=== PATIENT | male | born 1985 | race Two or more races ===

== ENCOUNTER 2023-03-26 08:52 | Emergency (ER) | payer MEDICAID ==
[~2023-03-26] VITALS: Ht 152.4 cm; Wt 73.2 kg
[2023-03-26 09:40] VITALS: BP 177/99; PULSE 91; RESP 16; TEMP 98.9; O2SAT 98
[2023-03-26] MEDS ORDERED: IBUP-1456 PO (09:42)
== END 2023-03-26 09:47 | disposition home or self-care (01) ==
LOC: ER 08:52
DX: M75.31 Calcific tendinitis of right shoulder (principal); M24.811 Other specific joint derangements of right shoulder, not elsewhere classified; Z79.1 Long term (current) use of non-steroidal anti-inflammatories (NSAID)
CPT/HCPCS: 73030

== ENCOUNTER 2025-03-09 18:07 | Inpatient (IN) | payer MEDICAID ==
[~2025-03-09] VITALS: Ht 167.6 cm; Wt 77.0 kg
[~2025-03-09 18:07] MED LIST: IBUP-1456 PO
--- NOTE | 2025-03-09 18:26 | ECG ---
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
[2025-03-09 18:30] VITALS: PULSE 76; RESP 18; O2SAT 98
[2025-03-09 18:40] LABS: Hematocrit 43.4 % (41.0-53.0); Hemoglobin 15.5 g/dL (13.5-17.5); Mean Corpuscular Hemoglobin 32.5 pg (28.0-32.0); Mean Corpuscular Volume 91.2 fL (80.0-100.0); Nucleated Red Blood Cells % 0.0 %
--- NOTE | 2025-03-09 18:53 | DVH ---
CHEST RADIOGRAPH Indication: cp Technique: Single frontal view of the chest was obtained Comparison: None FINDINGS: Lines and Tubes: None Lungs: No focal consolidation. Pleura: No effusion. No pneumothorax. Cardiomediastinal contours: Unremarkable Bones: No acute osseous abnormality. IMPRESSION: 1. No acute cardiopulmonary disease.
[2025-03-09 18:54] LABS: INR 1.01 (0.9-1.15); Partial Thromboplastin Time 31.0 SEC (24.5-34.5); Prothrombin Time 10.7 sec (9.3-11.8)
[2025-03-09] MEDS: NITROGLYCERIN 0.4 MG SL TAB SL ONE ×2 (18:54→21:07)
--- NOTE | 2025-03-09 19:10 | ECG ---
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
[2025-03-09 19:12] LABS: Chloride 105 mmol/L (98-107); Sodium 142 mmol/L (136-145)
[2025-03-09 19:13] LABS: Anion Gap 12 (5-15); Calcium 9.1 mg/dL (8.7-10.4); Carbon Dioxide 25 mmol/L (20-31)
[2025-03-09 19:18] LABS: BUN/Creatinine Ratio 11.2 (10.0-20.0); Blood Urea Nitrogen 10 mg/dL (9-23); Glucose 90 mg/dL (74-106)
[2025-03-09 19:19] VITALS: PULSE 89; RESP 18; O2SAT 97
[2025-03-09 19:29] LABS: Potassium 3.4 mmol/L (3.5-5.1)
--- NOTE | 2025-03-09 19:49 | ECG ---
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
--- NOTE | 2025-03-09 19:49 | ED.PDOC ---
HPI Comments 39-year-old male who presents to the ED with c/c of chest pain. Patient states chest pain started 3 days ago and states it is left side of chest. Patient states the pain was initially intermittent but states earlier today it became constant and patient came to the ED for evaluation patient in the ED otherwise states the pain is in the central and left-sided chest and he rates the pain a 8/10 exacerbated with exertion and relieved with rest. Patient denies any associated symptoms including diaphoresis palpitation or shortness of breath associated symptoms. Patient denies any past cardiac history. Patient otherwise denies any other symptoms at this time. Patient was hypertensive at arrival. Chief Complaint: Chest Pain Time Seen by MD: 19:47 Primary Care Provider: unknown Reviewed Notes: Nurses Notes, Medications, Allergies Allergies: Coded Allergies: NO KNOWN ALLERGIES (Unverified , 03/26/23) Home Meds Active Scripts Ibuprofen (Ibuprofen) 800 Mg Tab, 1 TAB PO TID, #30 TAB Prov:DEIRDRE DACOSTASIVAN LEONARD 03/26/23 Information Source: Patient Mode of Arrival: Ambulatory Severity: Moderate Timing: Days Duration: Since onset Prehospital treatment: None Location: Chest (L), Substernal Quality: Sharp, Squeezing, Crushing Onset: At Rest Cardiac Risk Factors: None PE Risk Factors: None History of: None Past Medical History PAST MEDICAL HISTORY: Denies Surgical History: Denies all surgeries Family History Family History: Reviewed,noncontributory to illness Social History Smoker: Non-Smoker Alcohol: Denies ETOH Use Drugs: Denies Drug Use Lives In: Home Constitutional: denies: chills, diaphoresis, fatigue, fever, malaise, sweats, w eakness, others EENTM: denies: blurred vision, double vision, ear bleeding, ear discharge, ear drainage, ear pain, ear ringing, eye pain, eye redness, hearing loss, mouth pain, mouth swelling, nasal discharge, nose bleeding, nose congestion, nose pain, photophobia, tearing, throat pain, throat swelling, voice changes, others Respiratory: denies: cough, hemoptysis, orthopnea, SOB at rest, shortness of breath, SOB with excertion, stridor, wheezing, others Cardiovascular: reports: chest pain; denies: dizzy spells, diaphoresis, Dyspnea on exertion, edema, irregular heart beat, left arm pain, lightheadedness, palpitations, PND, syncope, others Gastrointestinal: denies: abdomen distended, abdominal pain, blood streaked bowels, constipated, diarrhea, dysphagia, difficulty swallowing, hematemesis, melena, nausea, poor appetite, poor fluid intake, rectal bleeding, rectal pain, vomiting, others Genitourinary: denies: burning, dysuria, flank pain, frequency, hematuria, incontinence, penile discharge, penile sore, pain, testicle pain, testicle swelling, urgency, others Neurological: denies: dizziness, fainting, headache, left sided numbness, left sided weakness, numbness, paresthesia, pre-existing deficit, right sided numbness, right sided weakness, seizure, speech problems, tingling, tremors, weakness, others Musculoskeletal: denies: back pain, gout, joint pain, joint swelling, muscle pain, muscle stiffness, neck pain, others Integumetry: denies: bruises, change in color, change in hair/nails, dryness, laceration, lesions, lumps, rash, wounds, others Allergic/Immunocompromised: denies: Difficulty Healing, Frequent Infections, Hives, Itching, others Hematologic/Lymphatic: denies: anemia, blood clots, easy bleeding, easy bruising, swollen glands, others Endocrine: denies: excessive hunger, excessive sweating, excessive thirst, excessive urination, flushing, intolerance to cold, intolerance to heat, unexplained weight gain, unexplained weight loss, others Psychiatric: denies: anxiety, bipolar disorder, depression, hopeless, panic disorder, schizophrenia, sleepless, suicidal, others All Other Systems: Reviewed and Negative Physical Exam General Appearance: Moderate Distress (Qhax-cw-tglnnbhl distress due to chest pain concerns.), Normal HEENT: Normal ENT Inspection, Pharynx Normal, TMs Normal Neck: Full Range of Motion, Non-Tender, Normal, Normal Inspection Respiratory: Chest Non-Tender, Lungs Clear, No Accessory Muscle Use, No Respiratory Distress, Normal Breath Sounds, Other (Unremarkable auscultation nir ateral lung chou.) Cardiovascular: No Edema, No JVD, No Murmur, No Gallop, Normal Peripheral Pulses, Regular Rate/Rhythm, Other (Unremarkable cardiac evaluation) Breast Exam: Deferred Gastrointestinal: No Organomegaly, Non Tender, No Pulsatile Mass, Normal Bowel Sounds, Soft Genitalia: Deferred Pelvic: Deferred Rectal: Deferred Extremities: No calf tenderness, Normal capillary refill, No pedal edema Neurologic: Alert Cerebellar Function: NOT DONE Reflexes: NOT DONE Skin: Dry, Normal Color, Warm Lymphatic: No Adenopathy Was a procedure done? Was a procedure done?: No CP Differential Dx Differential Diagnosis: A-fib, A-Flutter, Angina, Anxiety / Panic Attack, AV Block 1st Degree, VT, PVC's Differential Diagnosis: HTN Essential, HTN Accelerated Differential Diagnosis: Angina, Chest Wall Pain X-Ray, Labs, Meds, VS Vital Signs Date Time Temp Pulse Resp B/P (MAP) Pulse Ox O2 Delivery O2 Flow Rate FiO2 03/09/25 21:19 68 152/86 (108) 03/09/25 21:07 140/66 03/09/25 20:57 98.1 68 18 140/88 (105) 99 98.1 03/09/25 19:51 90/64 03/09/25 19:19 89 18 97 Room Air* 0 03/09/25 19:19 98.1 95 18 141/89 (106) 98 98.1 03/09/25 18:54 164/101 03/09/25 18:30 98.4 76 18 150/105 (120) 98 98.4 03/09/25 18:30 76 18 98 Room Air* 0 03/09/25 18:17 70 03/09/25 18:10 98.7 74 18 183/100 97 98.7 Lab Test 03/09/25 21:15 03/09/25 19:18 03/09/25 18:30 Range/Units Troponin I High Sensitivity Pending 36 33 </=54 ng/L White Blood Count 4.8 4.4-10.8 10^3/uL Red Blood Count 4.76 4.5-5.90 10^6/uL Hemoglobin 15.5 13.5-17.5 g/dL Hematocrit 43.4 41.0-53.0 % Mean Corpuscular Volume 91.2 80.0-100.0 fL Mean Corpuscular Hemoglobin 32.5 H 28.0-32.0 pg Mean Corpuscular Hemoglobin Concent 35.7 32.0-36.0 g/dL Red Cell Distribution Width 13.1 11.8-14.3 % Platelet Count 367 140-450 10^3/uL Mean Platelet Volume 8.2 6.9-10.8 fL Neutrophils (%) (Auto) 52.8 37.0-80.0 % Lymphocytes (%) (Auto) 34.7 10.0-50.0 % Monocytes (%) (Auto) 9.4 0.0-12.0 % Eosinophils (%) (Auto) 2.1 0.0-7.0 % Basophils (%) (Auto) 1.0 0.0-2.0 % Neutrophils # (Auto) 2.5 1.6-8.6 10 ^3/uL Lymphocytes # (Auto) 1.7 0.4-5.4 10 ^3/uL Monocytes # (Auto) 0.5 0-1.3 10 ^3/uL Eosinophils # (Auto) 0.1 0-0.8 10 ^3/uL Basophils # (Auto) 0 0-0.2 10 ^3/uL Nucleated Red Blood Cells 0.0 % Prothrombin Time 10.7 9.3-11.8 sec Prothrombin Time INR 1.01 0.9-1.15 Activated Partial Thromboplast Time 31.0 24.5-34.5 SEC Sodium Level 142 136-145 mmol/L Potassium Level 3.4 L 3.5-5.1 mmol/L Chloride Level 105 98-107 mmol/L Carbon Dioxide Level 25 20-31 mmol/L Anion Gap 12 5-15 Blood Urea Nitrogen 10 9-23 mg/dL Creatinine 0.89 0.700-1.30 mg/dL Glomerular Filtration Rate Calc 112 >90 mL/min BUN/Creatinine Ratio 11.2 10.0-20.0 Serum Glucose 90 74-106 mg/dL Calcium Level 9.1 8.7-10.4 mg/dL B-Type Natriuretic Peptide 38.89 0-100 pg/mL Current Medications Medications (Trade) Dose Ordered Sig/Nadine Route Start Time Stop Time Status Last Admin Nitroglycerin (Ntrostat Sublingual) 0.4 mg ONCE ONCE 03/09/25 18:45 03/09/25 18:46 DC 03/09/25 18:54 Nitroglycerin (Ntrostat Sublingual) 0.4 mg ONCE ONCE 03/09/25 21:15 03/09/25 21:16 DC 03/09/25 21:[address] - [address] Ph: [phone] DIAGNOSTIC IMAGING Diagnostic Imaging Report : [id number] Signed PATIENT: SHANEL HIDALGO ACCT: [id number] UNIT: [id number] : 1985 LOC: ER ROOM / BED: / AGE / SEX: 39 / M ADM STATUS: REG ER SERVICE 23 ORDERING PHYSICIAN: CARLOS COLON MD PROCEDURE(s): CXR1 - CHEST XRAY 1 VIEW REASON: cp ORDER NUMBER(s): [id number], ACCESSION NUMBER(s): [id number] CHEST RADIOGRAPH Indication: cp Technique: Single frontal view of the chest was obtained Comparison: None FINDINGS: Lines and Tubes: None Lungs: No focal consolidation. Pleura: No effusion. No pneumothorax. Cardiomediastinal contours: Unremarkable Bones: No acute osseous abnormality. IMPRESSION: 1. No acute cardiopulmonary disease. ATED BY: REDDY GANT Jr., DO DICTATED DATE/TIME: 03/09/251849 SIGNED BY: REDDY GANT Jr., SIGNED DATE/TIME: 03/09/251849 CC: X-Ray, Labs, Meds, VS Comment All studies performed the ED were evaluated by me personally. Serum laboratories were unremarkable for a mild hypokalemic state. Patient was given potassium supplementation. EKG unfortunately revealed a sinus rhythm with a rate of 57. Notable was the left bundle-branch block. ND interval 150 and QT interval 438. Troponins were unremarkable for any acute cardiac concern, but the patient will be admitted for cardiac evaluation due to the new onset left bundle-branch block. Time of 1ST Reevaluation: 21:37 Reevaluation 1ST: Improved Consultation: PCP, Cardiology Patient Education/Counseling: Diagnosis, Treatment Family Education/Counseling: Diagnosis, Treatment, No Family Present SEPSIS Sepsis Screen Date sepsis recognized/suspect: Mar 09, 2025 Time Sepsis recognized/suspect: 1923 Recent Procedure: No On Antibiotic Therapy: No Respiratory Rate >20: No Heart Rate >90: No Temp<36 C (96.8 F) or >38.3 C: No SBP <90 or MAP <65 mmHG: No New Acute Mental Status Change: No Is the patient on CPAP, BIPAP,: No Physician Orders Troponin-I Hs (03/09/25 21:24) Chest Xray 1 View (03/09/25 18:24) Potassium Chl Eugenio Kcl (03/09/25 21:45) Vital Signs Date Time Temp Pulse Resp B/P (MAP) Pulse Ox O2 Delivery O2 Flow Rate FiO2 03/09/25 21:19 68 152/86 (108) 03/09/25 21:07 140/66 03/09/25 20:57 98.1 68 18 140/88 (105) 99 98.1 03/09/25 19:51 90/64 03/09/25 19:19 89 18 97 Room Air* 0 21 03/09/25 19:19 98.1 95 18 141/89 (106) 98 98.1 03/09/25 18:54 164/101 03/09/25 18:30 98.4 76 18 150/105 (120) 98 98.4 03/09/25 18:30 76 18 98 Room Air* 0 21 03/09/25 18:17 70 03/09/25 18:10 98.7 74 18 183/100 97 98.7 Laboratory Tests Test 03/09/25 18:30 White Blood Count 4.8 10^3/uL (4.4-10.8) Medications Medications Dose Ordered Sig/Nadine Route Start Time Stop Time Status Last Admin Dose Admin Nitroglycerin 0.4 mg ONCE ONCE SL 03/09/25 18:45 03/09/25 18:46 DC 03/09/25 18:54 Nitroglycerin 0.4 mg ONCE ONCE SL 03/09/25 21:15 03/09/25 21:16 DC 03/09/25 21:07 Departure 1 Departure Time of Disposition: 21:38 Impression: Primary Impression: Acute coronary syndrome Additional Impressions: Left bundle branch block Hypokalemia Disposition: ADMITTED INPATIENT Condition: Stable Discharged With: Self Critical Care Note Critical Care Time?: No Stability Stability form required: No Heart Score Heart Score: Heart Score Response (Comments) Value History Slightly Suspicious 0 EKG Repolarization Disturb 1 Age <45 0 Risk Factors No known risk factors 0 Troponin Normal limit 0 Total 1 I personally scribed for MILKA RO PAC ([email or web address]) on 03/09/25 at 19:49. Electronically submitted by Hawa Del Cid ([email or web address]). MILKA RO PAC Mar 09, 2025 19:49
[2025-03-09] MEDS: POTASSIUM CHL 20MEQ/100ML 100 ML IV SCH (21:45)
--- NOTE | 2025-03-09 21:57 | DVHHP2 ---
History of Present Illness Reason for Visit: Acute coronary syndrome History of Present Illness The patient is a 39-year-old male who denies past medical history presented to [facility] ED with complaint of chest pain. Patient reports chest pain started three days ago, left-sided chest pain, initially intermittent, but became constant, sharp in nature, rating 8/10 numeric scale, getting worse that prompted this visit. Patient was seen and evaluated in the ED, laboratory data shows WBC 4.8, platelets 367, sodium 142, potassium 3.4, BUN 10, creatinine 0.89, glucose 90, calcium 9.1, troponin 333, BNP 38.89, blood pressure 152/86, heart rate 68, temperature 98.1 F, O2 saturation 99% on room air. Chest x-ray show no acute cardiopulmonary disease. Please see medication orders section in the computer. On my assessment, patient denied chest pain at this moment, dizziness, headache, diaphoresis, shortness of breaths, no abdominal pain, diarrhea, nausea, vomiting, no fever, no chills. Patient was admitted for further evaluation and medical management. Past Medical History Denies past medical history Past Surgical History Denies all surgeries Family History Reviewed, noncontributory to the management of this case. Past Social History The patient lives at home, denies smoking, alcohol or illicit drugs abuse. Review of Systems Constitutional: No: Fever, Chills, Sweats, Weakness, Malaise, Other Eyes: No: Pain, Vision change, Conjunctivae inflammation, Eyelid inflammation, Other, Redness ENT: No: Ear pain, Ear discharge, Nose pain, Nose discharge, Nose congestion, Mouth pain, Mouth swelling, Throat pain, Throat swelling, Other Respiratory: No: Cough, Dry, Shortness of breath, SOB with excertion, Wheezing, Hemoptysis, Pleuritic Pain, Sputum, Wheezing, Other Cardiovascular: Chest Pain; No: Palpitations, Orthopnea, Paroxysmal Noc. Dyspnea, Edema, Lt Headedness, Other Gastrointestinal: No: Nausea, Vomiting, Abdominal Pain, Diarrhea, Constipation, Melena, Hematochezia, Other Genitourinary: No Dysuria, No Frequency, No Incontinence, No Hematuria, No Retention, No Other Musculoskeletal: No: other, neck pain, shoulder pain, arm pain, back pain, hand pain, leg pain, foot pain Skin: No: Rash, Lesions, Jaundice, Bruising, Other Neurological: No: Weakness, Numbness, Incoordination, Change in speech, Confusion, Seizures, Other Allergies: Coded Allergies: NO KNOWN ALLERGIES (Unverified , 03/26/23) Medications Current Medications Medications Dose Ordered Sig/Nadine Route Start Time Stop Time Status Last Admin Dose Admin Potassium Chloride 100 ml @ 50 mls/hr Q2H IV 03/09/25 21:45 03/10/25 01:44 UNV Sodium Chloride 1,000 ml @ 60 mls/hr [id number] IV 03/09/25 22:00 UNV Acetaminophen/ Hydrocodone Bitart 1 tab Q4HP PRN PO 03/09/25 22:00 UNV Ondansetron HCl 4 mg Q4HP PRN IV 03/09/25 22:00 UNV Docusate Sodium 100 mg BIDPRN PRN PO 03/09/25 22:00 UNV Acetaminophen 650 mg Q6HP PRN PO 03/09/25 22:00 UNV Exam Vital Signs Vital Signs Date Time Temp Pulse Resp B/P (MAP) Pulse Ox O2 Delivery O2 Flow Rate FiO2 03/09/25 21:19 68 152/86 (108) 03/09/25 20:57 98.1 18 99 98.1 03/09/25 19:19 Room Air* 0 21 General Appearance: Alert, Oriented X3, Cooperative, No acute distress HEENT: Atraumatic, PERRLA, EOMI, Mucous membr. moist/pink Respiratory: Clear to auscultation, Normal air movement Cardiovascular: Regular rate, Normal S1, Normal S2, No murmurs Abdominal: Normal bowel sounds, Soft, No tenderness, No hepatospenomegaly, No masses Extremities: No clubbing, No cyanosis, No edema, Normal pulses, No tenderness/swelling Skin: No rashes, No breakdown, No significant lesion Neuro: Normal gait, Normal speech, Strength at 5/5 X4 ext, Normal tone, Sensation intact, Cranial nerves 3-12 NL, Reflexes 2+ Psych/Mental Status: Mental status NL, Mood NL Labs/Xrays Labs Test 03/09/25 21:15 03/09/25 18:30 Range/Units White Blood Count 4.8 4.4-10.8 10^3/uL Red Blood Count 4.76 4.5-5.90 10^6/uL Hemoglobin 15.5 13.5-17.5 g/dL Hematocrit 43.4 41.0-53.0 % Mean Corpuscular Volume 91.2 80.0-100.0 fL Mean Corpuscular Hemoglobin 32.5 H 28.0-32.0 pg Mean Corpuscular Hemoglobin Concent 35.7 32.0-36.0 g/dL Red Cell Distribution Width 13.1 11.8-14.3 % Platelet Count 367 140-450 10^3/uL Mean Platelet Volume 8.2 6.9-10.8 fL Neutrophils (%) (Auto) 52.8 37.0-80.0 % Lymphocytes (%) (Auto) 34.7 10.0-50.0 % Monocytes (%) (Auto) 9.4 0.0-12.0 % Eosinophils (%) (Auto) 2.1 0.0-7.0 % Basophils (%) (Auto) 1.0 0.0-2.0 % Neutrophils # (Auto) 2.5 1.6-8.6 10 ^3/uL Lymphocytes # (Auto) 1.7 0.4-5.4 10 ^3/uL Monocytes # (Auto) 0.5 0-1.3 10 ^3/uL Eosinophils # (Auto) 0.1 0-0.8 10 ^3/uL Basophils # (Auto) 0 0-0.2 10 ^3/uL Nucleated Red Blood Cells 0.0 % Prothrombin Time 10.7 9.3-11.8 sec Prothrombin Time INR 1.01 0.9-1.15 Activated Partial Thromboplast Time 31.0 24.5-34.5 SEC Sodium Level 142 136-145 mmol/L Potassium Level 3.4 L 3.5-5.1 mmol/L Chloride Level 105 98-107 mmol/L Carbon Dioxide Level 25 20-31 mmol/L Anion Gap 12 5-15 Blood Urea Nitrogen 10 9-23 mg/dL Creatinine 0.89 0.700-1.30 mg/dL Glomerular Filtration Rate Calc 112 >90 mL/min BUN/Creatinine Ratio 11.2 10.0-20.0 Serum Glucose 90 74-106 mg/dL Calcium Level 9.1 8.7-10.4 mg/dL B-Type Natriuretic Peptide 38.89 0-100 pg/mL PATIENT: SHANEL HIDALGO ACCT: [id number] UNIT: [id number] : 1985 LOC: ER ROOM / BED: / AGE / SEX: 39 / M ADM STATUS: REG ER SERVICE 23 ORDERING PHYSICIAN: CARLOS COLON MD PROCEDURE(s): CXR1 - CHEST XRAY 1 VIEW REASON: cp ORDER NUMBER(s): [id number], ACCESSION NUMBER(s): [id number] CHEST RADIOGRAPH Indication: cp Technique: Single frontal view of the chest was obtained Comparison: None FINDINGS: Lines and Tubes: None Lungs: No focal consolidation. Pleura: No effusion. No pneumothorax. Cardiomediastinal contours: Unremarkable Bones: No acute osseous abnormality. IMPRESSION: 1. No acute cardiopulmonary disease. SEPSIS Sepsis Screen Date sepsis recognized/suspect: Mar 09, 2025 Time Sepsis recognized/suspect: 1923 Recent Procedure: No On Antibiotic Therapy: No Respiratory Rate >20: No Heart Rate >90: No Temp<36 C (96.8 F) or >38.3 C: No SBP <90 or MAP <65 mmHG: No New Acute Mental Status Change: No Is the patient on CPAP, BIPAP,: No Physician Orders Troponin-I Hs (03/09/25 21:24) Chest Xray 1 View (03/09/25 18:24) Potassium Chl 20meq/100ml (03/09/25 21:45) Allergies (03/09/25 21:51) Code Status (03/09/25 21:51) Sodium Chloride 0.9% (03/09/25 22:00) Oxygen Per Hour (03/09/25 21:51) Hydrocodone-Acet 5/325mg Tab ([place] 5/32 (03/09/25 22:00) Ondansetron Hcl (Zofran) (03/09/25 22:00) Docusate Sodium Capsule (Colace Capsule) (03/09/25 22:00) Complete Blood Count (03/10/25 04:00) Comprehensive Metabolic Panel (03/10/25 04:00) Cardiac Diet-2gna,Lofat,Lochol (03/10/25 Breakfast) Condition: Serious (03/09/25 21:51) Acetaminophen Tablet (Tylenol Tablet) (03/09/25 22:00) Bedrest With Bathroom Privileg (03/09/25 21:51) Sequential Compression Device (03/09/25 ) Admit (03/09/25 21:56) Nitroglycerin Sublingual (Ntrostat Subli (03/09/25 22:00) Morphine Sulfate Injection (03/09/25 22:00) Stat Ekg For Chest Pain (03/09/25 21:56) Notify Md Of Changes From Base (03/09/25 21:56) Moss Bleacher For 24 Hours (03/09/25 21:56) Emergency Dysrhythmia Protocol (03/09/25 21:56) Rhythm Strips Once Every Shift (03/09/25 21:56) Oxygen By Nasal Cannula (03/09/25 21:56) Vital Signs Date Time Temp Pulse Resp B/P (MAP) Pulse Ox O2 Delivery O2 Flow Rate FiO2 03/09/25 21:19 68 152/86 (108) 03/09/25 21:07 140/66 03/09/25 20:57 98.1 68 18 140/88 (105) 99 98.1 03/09/25 19:51 90/64 03/09/25 19:19 89 18 97 Room Air* 0 21 03/09/25 19:19 98.1 95 18 141/89 (106) 98 98.1 03/09/25 18:54 164/101 03/09/25 18:30 98.4 76 18 150/105 (120) 98 98.4 03/09/25 18:30 76 18 98 Room Air* 0 21 03/09/25 18:17 70 03/09/25 18:10 98.7 74 18 183/100 97 98.7 Laboratory Tests Test 03/09/25 18:30 White Blood Count 4.8 10^3/uL (4.4-10.8) Medications Medications Dose Ordered Sig/Nadine Route Start Time Stop Time Status Last Admin Dose Admin Nitroglycerin 0.4 mg ONCE ONCE SL 03/09/25 18:45 03/09/25 18:46 DC 03/09/25 18:54 0.4 MG Nitroglycerin 0.4 mg ONCE ONCE SL 03/09/25 21:15 03/09/25 21:16 DC 03/09/25 21:07 0.4 MG Assessment/Plan Assessment/Plan Acute coronary syndrome Hypokalemia Left bundle branch block Plan 1. Admit to telemetry unit 2. Breathing treatment 3. Pain control management 4. Management of fluids and electrolytes 5. Consultation for hospitalist 6. Diagnostic tests chest x-ray 7. DVT prophylaxis on SCDs 8. Repeat labs CBC, CMP in a.m. 9. Continue with current medical management 10. Treatment plan discussed with patient and RN. Patient verbalized understanding. Plan discussed with: Patient, Other (RN) My Orders Orders - NYLA VELAZQUEZ DNP Procedure Category Date Status Time Allergies DARRELL 03/09/25 In Process 21:51 Code Status CODE 03/09/25 Transmitted 21:51 Sodium Chloride 0.9% PHA 03/09/25 Logged 22:00 Oxygen Per Hour RT 03/09/25 Transmitted 21:51 Hydrocodone-Acet PHA 03/09/25 Logged 5/325mg Tab ([place] 22:00 Ondansetron Hcl PHA 03/09/25 Logged (Zofran) 22:00 Docusate Sodium PHA 03/09/25 Logged Capsule (Colace 22:00 Complete Blood Count LAB 03/10/25 Verified 04:00 Comprehensive LAB 03/10/25 Verified Metabolic Panel 04:00 Cardiac DIET 03/10/25 Transmitted Diet-2gna,Lofat,Lochol Breakfast Condition: Serious DARRELL 03/09/25 In Process 21:51 Acetaminophen Tablet PHA 03/09/25 Logged (Tylenol Tablet) 22:00 Bedrest With Bathroom DARRELL 03/09/25 In Process Privileg 21:51 Sequential DARRELL 03/09/25 In Process Compression Device Admit ADMIT 03/09/25 Verified 21:56 Nitroglycerin PHA 03/09/25 Verified Sublingual (Ntrostat 22:00 Morphine Sulfate PHA 03/09/25 Verified Injection 22:00 Stat Ekg For Chest DARRELL 03/09/25 Verified Pain 21:56 Notify Md Of Changes DARRELL 03/09/25 Verified From Base 21:56 Moss Bleacher For DARRELL 03/09/25 Verified 24 Hours 21:56 Emergency Dysrhythmia DARRELL 03/09/25 Verified Protocol 21:56 Rhythm Strips Once DARRELL 03/09/25 Verified Every Shift 21:56 Oxygen By Nasal RT 03/09/25 Verified Cannula 21:56 Problem List: (1) Acute coronary syndrome (2) Hypokalemia (3) Left bundle branch block Date of Service: Mar 09, 2025 Billing Provider: NYLA VELAZQUEZ DNP Common Visit Codes: [id number] INP/OBS CARE (HIGH) NYLA VELAZQUEZ DNP Mar 09, 2025 21:57
[2025-03-09] MEDS: SODIUM CHLORIDE 0.9% 1,000 ML IV SCH (22:00)
[2025-03-09] MEDS ORDERED: ONDANSETRON HCL 4 MG/2 ML VIAL IV PRN (22:00)
[2025-03-09] MEDS ORDERED: ACETAMINOPHEN 325 MG TAB PO PRN (22:00)
[2025-03-09] MEDS ORDERED: MORPHINE SULFATE INJ 2 MG/ml SYRG IV PRN (22:00)
[2025-03-09] MEDS ORDERED: DOCUSATE SOD 100 MG CAP PO PRN (22:00)
[2025-03-09] MEDS: NITROGLYCERIN 0.4 MG SL TAB SL PRN (23:18)
[2025-03-09] MEDS ORDERED: hydrALAZINE HCL 20 MG/ML VL IV PRN (23:45)
[2025-03-10] VITALS (7 sets, daily range): BP systolic 134–160; BP diastolic 88–99; PULSE 66–77; RESP 17–20; TEMP 97.6–98.7; O2SAT 97–100
[2025-03-10] MEDS ORDERED: ASPI-123 PO (01:28)
[2025-03-10] MEDS: HYDROcodone-ACET 5/325MG TAB PO PRN (04:16)
[2025-03-10 06:35] LABS: Hematocrit 41.3 % (41.0-53.0); Hemoglobin 14.8 g/dL (13.5-17.5); Mean Corpuscular Hemoglobin 32.8 pg (28.0-32.0); Mean Corpuscular Volume 91.3 fL (80.0-100.0); Nucleated Red Blood Cells % 0.1 %
[2025-03-10 06:54] LABS: Alanine Aminotransferase 36 U/L (7-40); Albumin 4.2 g/dL (3.2-4.8); Alkaline Phosphatase 50 U/L (46-116); Anion Gap 14 (5-15); BUN/Creatinine Ratio 11.5 (10.0-20.0); Bilirubin, Total 1.2 mg/dL (0.2-1.0); Carbon Dioxide 22 mmol/L (20-31); Chloride 105 mmol/L (98-107); Glucose 85 mg/dL (74-106); Sodium 141 mmol/L (136-145); Total Protein 6.5 g/dL (5.7-8.2)
[2025-03-10 07:00] LABS: Blood Urea Nitrogen 7 mg/dL (9-23); Calcium 8.5 mg/dL (8.7-10.4); Potassium 3.4 mmol/L (3.5-5.1)
--- NOTE | 2025-03-10 15:51 | DVHPN2 ---
Subjective Overnight events noted. I am assuming the care of the patient from today onwards. Changes from previous H/P or p: No Changes Eyes: No Pain, No Vision change, No Conjunctivae inflammation, No Eyelid inflammation, No Other, No Redness ENT: No Ear pain, No Ear discharge, No Nose pain, No Nose discharge, No Nose congestion, No Mouth pain, No Mouth swelling, No Throat pain, No Throat swelling, No Other Cardiovascular: Chest Pain; No Palpitations, No Orthopnea, No Paroxysmal Noc. Dyspnea, No Edema, No Lt Headedness, No Other Respiratory: No Cough, No Dry, No Shortness of breath, No SOB with excertion, No Wheezing, No Hemoptysis, No Pleuritic Pain, No Sputum, No Other Gastrointestinal: No Nausea, No Vomiting, No Abdominal Pain, No Diarrhea, No Constipation, No Melena, No Hematochezia, No Other Genitourinary: No Dysuria, No Frequency, No Incontinence, No Hematuria, No Retention, No Other Musculoskeletal: No other, No neck pain, No shoulder pain, No arm pain, No back pain, No hand pain, No leg pain, No foot pain Skin: No Rash, No Lesions, No Jaundice, No Bruising, No Other Objective Vitals Vital Signs Date Time Temp Pulse Resp B/P (MAP) Pulse Ox O2 Delivery O2 Flow Rate FiO2 03/10/25 13:00 97.6 77 20 139/91 (107) 97 97.6 03/10/25 08:00 Room Air* 0 21 Intake/Output Intake and Output 03/10/25 07:00 Intake Total 640 ml Balance 640 ml Intake Oral 640 ml # Voids 2 Exam HEENT pupils are reactive Neck is supple CV is S1-S2 regular rate and rhythm Respiratory bilateral clear GI positive bowel sound 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 Medications Current Medications Medications Dose Ordered Sig/Nadine Route Start Time Stop Time Status Last Admin Dose Admin Sodium Chloride 1,000 ml @ 60 mls/hr [id number] IV 03/09/25 22:00 Acetaminophen/ Hydrocodone Bitart 1 tab Q4HP PRN PO 03/09/25 22:00 03/10/25 13:25 1 TAB Ondansetron HCl 4 mg Q4HP PRN IV 03/09/25 22:00 Docusate Sodium 100 mg BIDPRN PRN PO 03/09/25 22:00 Acetaminophen 650 mg Q6HP PRN PO 03/09/25 22:00 Nitroglycerin 0.4 mg Q5MINP PRN SL 03/09/25 22:00 03/09/25 23:18 0.4 MG Morphine Sulfate 2 mg Q30M PRN IV 03/09/25 22:00 Hydralazine HCl 10 mg Q6HP PRN IV 03/09/25 23:45 Laboratory Results Laboratory Tests 03/10/25 04:59 Chemistry Test 03/09/25 18:30 03/10/25 04:59 Calcium Level 9.1 mg/dL (8.7-10.4) 8.5 mg/dL (8.7-10.4) L Albumin 4.2 g/dL (3.2-4.8) Total Protein 6.5 g/dL (5.7-8.2) Coagulation Test 03/09/25 18:30 Prothrombin Time 10.7 sec (9.3-11.8) Prothrombin Time INR 1.01 (0.9-1.15) Activated Partial Thromboplast Time 31.0 SEC (24.5-34.5) Cardiac Markers Test 03/09/25 18:30 B-Type Natriuretic Peptide 38.89 pg/mL (0-100) LFT Test 03/10/25 04:59 Alanine Aminotransferase (ALT) 36 U/L (7-40) Alkaline Phosphatase 50 U/L (46-116) Aspartate Amino Transferase (AST) 27 U/L (13-40) Total Bilirubin 1.2 mg/dL (0.2-1.0) H Assessment/Plan Assessment/Plan 39-year-old male with a no significant past medical history presented to the hospital with a left-sided chest pressure heaviness found to have 1. Chest pain rule out GA 2. Left bundle branch block -2D echo, cardiology consultation, plan of care discussed with the patient. Plan discussed with: Patient My Orders Orders - CATALINA VUONG MD Procedure Category Date Status Time * Cardiology Consult CONS 03/10/25 Transmitted 15:22 Echo 2d Mode Cardiac US 03/10/25 Logged DOP 15:22 Complete Blood Count LAB 03/11/25 Verified 05:00 Basic Metabolic Panel LAB 03/11/25 Verified 05:00 Date of Service: Mar 10, 2025 Billing Provider: CATALINA VUONG MD Common Visit Codes: [id number] INP/OBS CARE(MOD) CATALINA VUONG MD Mar 10, 2025 15:51
--- NOTE | 2025-03-10 18:41 | DVHSR ---
APPROVED REPORT EXAM: Two-dimensional and M-mode echocardiogram with Doppler and color Doppler. Blood Pressure: 139/91 mmHg INDICATION Chest Pain RISK FACTORS Height: 5'6", Weight: 167 DIMENSIONS LVDd5.5 (3.8-5.7cm)LA (2D)3.5 (1.9-4.0cm)Aortic Root3.7 (2.0-3.7cm) LVDs4.1 (2.5-4.0cm)LA (MM) (1.9-4.0cm)Aortic Cusp Exc2.1 (1.5-2.0cm) EF (%) 50.0 (55-70%)Rt. Atrium4.1 (1.9-4.0cm)Asc. Aorta cm IVSd1.0 (0.7-1.1cm)RV (D)3.8 (1.8-2.4cm) PWd0.8 (0.7-1.1cm) Mitral Valve MitralMitral Stenosis E wave0.86m/sMV Mean GR.mmHg A wave0.84m/sMV Peak GR.mmHg E/A ratio1.02D MVAcm2 DECEL [id number] 1/2 Timems Aortic Valve Aortic ValveAortic Stenosis V10.83m/Ashia Mean GR.4mmHg V21.29m/Ashia Peak GR.7mmHg LVOT Diameter2.3 (1.8-2.4cm)Doppler AVA2.67cm2 Pulmonic Valve V21.17m/s Tricuspid Valve TR Velocity2.81m/s [id number] Conclusion LV EF IS 50% AND IS LOW NORMAL DYSKINESIS OF IVS NORMAL VALVES NO EFFUSION NORMAL RV FUNCTION AND SIZE NORMAL RVSP
--- NOTE | 2025-03-10 23:15 | DVHINCON2 ---
Date of service: Mar 10, 2025 Referring Physician Rachel Reason for Consultation Chest pain History of Present Illness This is a 39-year-old male without any past medical history who presents to the ED with a complaint of chest pain. Patient states chest pain started 3 days ago and states it is left side of chest. Patient states the pain was initially intermittent but states earlier today it became constant. Patient in the ED otherwise states the pain is in the central and left-sided chest and he rates the pain a 8/10 exacerbated with exertion and relieved with rest. Patient was hypertensive at arrival. K 3.4, CA 8.5. Chest x-ray showed NAD. Troponin is negative. EKG is NSR at 70. Patient was admitted to the hospital. I am asked to consult on this patient. Family History: Diabetes mellitus G8 FATHER, Allergies: Coded Allergies: NO KNOWN ALLERGIES (Unverified , 03/26/23) Home Meds Reported Medications Aspirin (ENTERIC COATED ASPIRIN) 325 Mg Tab, 1 TAB PO DAILY, #30 TAB 5 Refills 03/10/25 Current Medications Current Medications Medications (Trade) Dose Ordered Sig/Nadine Route PRN Reason Start Time Stop Time Status Last Admin Potassium Chloride 100 ml @ 50 mls/hr Q2H IV 03/09/25 21:45 03/10/25 01:44 DC 03/09/25 23:17 Sodium Chloride 1,000 ml @ 60 mls/hr [id number] IV 03/09/25 22:00 Acetaminophen/ Hydrocodone Bitart (Harvard 5/325MG Tab) 1 tab Q4HP PRN PO MODERATE PAIN (4-6 PAIN SCALE) 03/09/25 22:00 03/10/25 13:25 Ondansetron HCl (Zofran) 4 mg Q4HP PRN IV NAUSEA / VOMITING 03/09/25 22:00 Docusate Sodium (Colace Capsule) 100 mg BIDPRN PRN PO FOR CONSTIPATION 03/09/25 22:00 Acetaminophen (Tylenol Tablet) 650 mg Q6HP PRN PO PAIN SCALE 1-3 OR TEMP>100.4 03/09/25 22:00 Nitroglycerin (Ntrostat Sublingual) 0.4 mg Q5MINP PRN SL FOR CHEST PAIN 03/09/25 22:00 03/09/25 23:18 Morphine Sulfate 2 mg Q30M PRN IV FOR CHEST PAIN 03/09/25 22:00 Hydralazine HCl (Apresoline Injection) 10 mg Q6HP PRN IV SBP>150 03/09/25 23:45 Review of Systems Constitutional: denies: chills, diaphoresis, fatigue, fever, malaise, sweats, weakness, others EENTM: denies: blurred vision, double vision, ear bleeding, ear discharge, ear drainage, ear pain, ear ringing, eye pain, eye redness, hearing loss, mouth pain, mouth swelling, nasal discharge, nose bleeding, nose congestion, nose pain, photophobia, tearing, throat pain, throat swelling, voice changes, others Respiratory: denies: cough, hemoptysis, orthopnea, SOB at rest, shortness of breath, SOB with excertion, stridor, wheezing, others Cardiovascular: reports: chest pain; denies: dizzy spells, diaphoresis, Dyspnea on exertion, edema, irregular heart beat, left arm pain, lightheadedness, palpitations, PND, syncope, others Gastrointestinal: denies: abdomen distended, abdominal pain, blood streaked bowels, constipated, diarrhea, dysphagia, difficulty swallowing, hematemesis, melena, nausea, poor appetite, poor fluid intake, rectal bleeding, rectal pain, vomiting, others Genitourinary: denies: burning, dysuria, flank pain, frequency, hematuria, incontinence, penile discharge, penile sore, pain, testicle pain, testicle swelling, urgency, others Neurological: denies: dizziness, fainting, headache, left sided numbness, left sided weakness, numbness, paresthesia, pre-existing deficit, right sided numbness, right sided weakness, seizure, speech problems, tingling, tremors, weakness, others Musculoskeletal: denies: back pain, gout, joint pain, joint swelling, muscle pain, muscle stiffness, neck pain, others Integumetry: denies: bruises, change in color, change in hair/nails, dryness, laceration, lesions, lumps, rash, wounds, others Allergic/Immunocompromised: denies: Difficulty Healing, Frequent Infections, Hives, Itching, others Hematologic/Lymphatic: denies: anemia, blood clots, easy bleeding, easy bruising, swollen glands, others Endocrine: denies: excessive hunger, excessive sweating, excessive thirst, excessive urination, flushing, intolerance to cold, intolerance to heat, une xplained weight gain, unexplained weight loss, others Psychiatric: denies: anxiety, bipolar disorder, depression, hopeless, panic disorder, schizophrenia, sleepless, suicidal, others All Other Systems: Reviewed and Negative Vital Signs Vital Signs Date Time Temp Pulse Resp B/P (MAP) Pulse Ox O2 Delivery O2 Flow Rate FiO2 03/10/25 16:32 97.6 67 20 134/88 (103) 97 97.6 03/10/25 08:00 Room Air* 0 21 Physical Exam GENERAL: Alert and oriented x 3. No acute distress. EYES: PERRL, EOMI. Anicteric. HENT: Moist mucous membranes. LUNGS: Clear to auscultation bilaterally. CARDIOVASCULAR: Regular rate and rhythm. ABDOMEN: Soft, nontender and nondistended. EXTREMITIES: No edema. NEUROLOGIC: No focal neurological deficits. SKIN: Warm, dry. Labs/Diagnostic Data Labs Test 03/10/25 04:59 03/09/25 21:15 03/09/25 18:30 Range/Units White Blood Count 4.1 L 4.4-10.8 10^3/uL Red Blood Count 4.52 4.5-5.90 10^6/uL Hemoglobin 14.8 13.5-17.5 g/dL Hematocrit 41.3 41.0-53.0 % Mean Corpuscular Volume 91.3 80.0-100.0 fL Mean Corpuscular Hemoglobin 32.8 H 28.0-32.0 pg Mean Corpuscular Hemoglobin Concent 35.9 32.0-36.0 g/dL Red Cell Distribution Width 13.0 11.8-14.3 % Platelet Count 334 140-450 10^3/uL Mean Platelet Volume 8.7 6.9-10.8 fL Neutrophils (%) (Auto) 58.3 37.0-80.0 % Lymphocytes (%) (Auto) 31.0 10.0-50.0 % Monocytes (%) (Auto) 7.8 0.0-12.0 % Eosinophils (%) (Auto) 1.6 0.0-7.0 % Basophils (%) (Auto) 1.3 0.0-2.0 % Neutrophils # (Auto) 2.4 1.6-8.6 10 ^3/uL Lymphocytes # (Auto) 1.3 0.4-5.4 10 ^3/uL Monocytes # (Auto) 0.3 0-1.3 10 ^3/uL Eosinophils # (Auto) 0.1 0-0.8 10 ^3/uL Basophils # (Auto) 0.1 0-0.2 10 ^3/uL Nucleated Red Blood Cells 0.1 % Sodium Level 141 136-145 mmol/L Potassium Level 3.4 L 3.5-5.1 mmol/L Chloride Level 105 98-107 mmol/L Carbon Dioxide Level 22 20-31 mmol/L Anion Gap 14 5-15 Blood Urea Nitrogen 7 L 9-23 mg/dL Creatinine 0.61 L 0.700-1.30 mg/dL Glomerular Filtration Rate Calc 125 >90 mL/min BUN/Creatinine Ratio 11.5 10.0-20.0 Serum Glucose 85 74-106 mg/dL Calcium Level 8.5 L 8.7-10.4 mg/dL Total Bilirubin 1.2 H 0.2-1.0 mg/dL Aspartate Amino Transferase (AST) 27 13-40 U/L Alanine Aminotransferase (ALT) 36 7-40 U/L Alkaline Phosphatase 50 46-116 U/L Total Protein 6.5 5.7-8.2 g/dL Albumin 4.2 3.2-4.8 g/dL Troponin I High Sensitivity 35 </=54 ng/L Prothrombin Time 10.7 9.3-11.8 sec Prothrombin Time INR 1.01 0.9-1.15 Activated Partial Thromboplast Time 31.0 24.5-34.5 SEC B-Type Natriuretic Peptide 38.89 0-100 pg/mL Assessment Chest pain. Left bundle branch block. Plan/Recommendation I agree with your ongoing assessment and care of plan. Echocardiogram. Morphine and Harvard for pain management. IV Hydralazine for SBP >150. Nitro SL. Additional plan as per the hospital course. A total of 45 minutes was spent reviewing the patient record, examining the patient, making a diagnostic and therapeutic plan, discussing this plan with medical personnel, following up on diagnostic studies and following the patient for clinical stability excluding any and all procedures. At least 50% of this time was spent in direct, [id number] contact. Plan discussed with: Patient SHAUN QUIGLEY MD Mar 10, 2025 18:57
[2025-03-11] VITALS (8 sets, daily range): BP systolic 134–149; BP diastolic 81–98; PULSE 52–88; RESP 16–20; TEMP 97–98.6; O2SAT 95–100
[2025-03-11 05:56] LABS: Hematocrit 44.1 % (41.0-53.0); Hemoglobin 15.6 g/dL (13.5-17.5); Mean Corpuscular Hemoglobin 32.7 pg (28.0-32.0); Mean Corpuscular Volume 92.4 fL (80.0-100.0); Nucleated Red Blood Cells % 0.1 %
[2025-03-11 06:08] LABS: Anion Gap 11 (5-15); Carbon Dioxide 27 mmol/L (20-31); Chloride 104 mmol/L (98-107); Potassium 3.9 mmol/L (3.5-5.1); Sodium 142 mmol/L (136-145)
[2025-03-11 06:09] LABS: Calcium 8.9 mg/dL (8.7-10.4)
[2025-03-11 06:14] LABS: BUN/Creatinine Ratio 11.8 (10.0-20.0); Glucose 86 mg/dL (74-106)
[2025-03-11 06:16] LABS: Blood Urea Nitrogen 9 mg/dL (9-23)
--- NOTE | 2025-03-11 09:09 | ECG ---
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
--- NOTE | 2025-03-11 13:24 | DVHPN2 ---
Consult Progress Note Date Seen: Mar 11, 2025 Subjective Review of Systems: CVS:Normal, RESPIRATORY:Normal, NEURO:Normal Objective vital signs Vital Sign Date Time Temp Pulse Resp B/P (MAP) Pulse Ox O2 Delivery O2 Flow Rate FiO2 03/11/25 09:22 97.0 65 16 144/98 (113) 98 97.0 03/10/25 20:00 Room Air* 0 21 Total Intake and Output 03/10/25 03/10/25 03/11/25 15:00 23:00 07:00 Intake Total 1780 ml 400 ml Balance 1780 ml 400 ml medications Current Medications Medications Dose Ordered Sig/Nadine Route Start Time Stop Time Status Last Admin Dose Admin Sodium Chloride 1,000 ml @ 60 mls/hr [id number] IV 03/09/25 22:00 Acetaminophen/ Hydrocodone Bitart 1 tab Q4HP PRN PO 03/09/25 22:00 03/10/25 22:41 1 TAB Ondansetron HCl 4 mg Q4HP PRN IV 03/09/25 22:00 Docusate Sodium 100 mg BIDPRN PRN PO 03/09/25 22:00 Acetaminophen 650 mg Q6HP PRN PO 03/09/25 22:00 Nitroglycerin 0.4 mg Q5MINP PRN SL 03/09/25 22:00 03/09/25 23:18 0.4 MG Morphine Sulfate 2 mg Q30M PRN IV 03/09/25 22:00 Hydralazine HCl 10 mg Q6HP PRN IV 03/09/25 23:45 Examination: LUNGS:Normal, CVS:Abnormal (Sinus rhythm with LBBB), NEURO:Normal laboratory and microbiology Laboratory Tests 03/11/25 04:09 Test 03/11/25 04:09 Range/Units Serum Glucose 86 74-106 mg/dL Problem List/Assessment/Plan Problem List/Assessment/Plan Stable angina rule out coronary artery disease Left bundle branch block, newly diagnosed Hypertension, newly diagnosed Alcohol dependance Hx of tobacco use Plan/Recommendation (Dr. Grider) The patient with chest pain and a newly diagnosed left bundle branch block underwent a transthoracic echocardiogram revealing LVEF of 50% (low normal). He was offered a cardiac catheterization and coronary angiogram with all risks and benefits of the procedure explained in full detail. The patient requested to explained procedure to over the phone which has been completed. At this point, the patient has not make any informed decisions as if he would like to proceed with the invasive cardiac workup. Please notify Cardiology of any decisions. In the meantime, load on ASA 325 mg and continue maintenance dosage. Initiate lipid lowering agent, lipid panel pending at this time. Initiate blood pressure control with beta-jean pierre, ACEI and add Jardiance given a low normal EF. Continue blood alcohol level, HgbA1C, TSH and Mg levels. Thank you for allowing us to participate in this patient's care. Please call if you have any questions or concerns. This medical document was created using an electronic medical record system with voice recognition software and computerized dictation system. Although this document has been carefully reviewed, there might still be some phonetic and typographical errors. Occasional wrong-word or ``sound-alike substitutions may have occurred due to the inherent limitations of voice recognition software. These areas are purely typographical due to imperfections of the software programs and do not reflect any compromise in the patient's medical care. Please read the chart carefully and recognize, using context, where these substitutions have occurred. Plan discussed with: Patient, Spouse, Other Date of Service: Mar 11, 2025 Billing Provider: RO ELLSWORTH Cardiology Common Codes: [id number] INP/OBS CARE (High) RO ELLSWORTH Mar 11, 2025 13:24
[2025-03-11 14:00] LABS: Magnesium 2.3 mg/dL (1.6-2.6); Triglycerides 123.0 mg/dL (< 150)
[2025-03-11 14:02] LABS: Cholesterol 178.0 mg/dL (< 200)
[2025-03-11 14:03] LABS: HDL Cholesterol 38.0 mg/dL (40-59)
[2025-03-11] MEDS: LISINOPRIL 5 MG TAB PO ONE (14:15)
[2025-03-11] MEDS: METOPROLOL SUCCINATE XL 50 MG TAB PO ONE (14:16)
--- NOTE | 2025-03-11 15:51 | DVHPN2 ---
Subjective Overnight events noted. Patient is scheduled for coronary angiogram in a.m.. Changes from previous H/P or p: No Changes Eyes: No Pain, No Vision change, No Conjunctivae inflammation, No Eyelid inflammation, No Other, No Redness ENT: No Ear pain, No Ear discharge, No Nose pain, No Nose discharge, No Nose congestion, No Mouth pain, No Mouth swelling, No Throat pain, No Throat swelling, No Other Cardiovascular: Chest Pain; No Palpitations, No Orthopnea, No Paroxysmal Noc. Dyspnea, No Edema, No Lt Headedness, No Other Respiratory: No Cough, No Dry, No Shortness of breath, No SOB with excertion, No Wheezing, No Hemoptysis, No Pleuritic Pain, No Sputum, No Other Gastrointestinal: No Nausea, No Vomiting, No Abdominal Pain, No Diarrhea, No Constipation, No Melena, No Hematochezia, No Other Genitourinary: No Dysuria, No Frequency, No Incontinence, No Hematuria, No Retention, No Other Musculoskeletal: No other, No neck pain, No shoulder pain, No arm pain, No back pain, No hand pain, No leg pain, No foot pain Skin: No Rash, No Lesions, No Jaundice, No Bruising, No Other Objective Vitals Vital Signs Date Time Temp Pulse Resp B/P (MAP) Pulse Ox O2 Delivery O2 Flow Rate FiO2 03/11/25 14:16 77 136/92 03/11/25 09:22 97.0 16 98 97.0 03/11/25 08:00 Room Air* 0 21 Intake/Output Intake and Output 03/11/25 07:00 Intake Total 2180 ml Balance 2180 ml Intake Oral 2180 ml # Voids 6 # Bowel Movements 1 Exam HEENT pupils are reactive Neck is supple CV is S1-S2 regular rate and rhythm Respiratory bilateral clear GI positive bowel sound 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 no edema 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 Medications Current Medications Medications Dose Ordered Sig/Nadine Route Start Time Stop Time Status Last Admin Dose Admin Acetaminophen/ Hydrocodone Bitart 1 tab Q4HP PRN PO 03/09/25 22:00 03/10/25 22:41 1 TAB Ondansetron HCl 4 mg Q4HP PRN IV 03/09/25 22:00 Docusate Sodium 100 mg BIDPRN PRN PO 03/09/25 22:00 Acetaminophen 650 mg Q6HP PRN PO 03/09/25 22:00 Nitroglycerin 0.4 mg Q5MINP PRN SL 03/09/25 22:00 03/09/25 23:18 0.4 MG Morphine Sulfate 2 mg Q30M PRN IV 03/09/25 22:00 Hydralazine HCl 10 mg Q6HP PRN IV 03/09/25 23:45 Aspirin 81 mg DAILY PO 03/12/25 10:00 Metoprolol Succinate 25 mg DAILY PO 03/12/25 10:00 Lisinopril 5 mg DAILY PO 03/12/25 10:00 Empaglifozin 10 mg DAILY PO 03/12/25 10:00 Guaifenesin 200 mg Q4HP PRN GT 03/11/25 14:30 03/11/25 15:02 200 MG Laboratory Results Laboratory Tests 03/11/25 04:09 Chemistry Test 03/11/25 04:09 Calcium Level 8.9 mg/dL (8.7-10.4) Magnesium Level 2.3 mg/dL (1.6-2.6) Lipid panel Test 03/11/25 04:09 Cholesterol Level 178 mg/dL (< 200) HDL Cholesterol 38 mg/dL (40-59) L Triglycerides Level 123 mg/dL (< 150) HgA1c, TSH Test 03/11/25 04:09 Hemoglobin A1c 5.2 % A1C (<5.7) Thyroid Stimulating Hormone (TSH) 4.32 uIU/mL (0.55-4.78) Assessment/Plan Assessment/Plan 39-year-old male with a no significant past medical history presented to the hospital with a left-sided chest pressure heaviness found to have 1. Chest pain with a stable angina 2. New onset of Left bundle branch block 3. Chronic tobacco use disorder -nicotine cessation counseling -2D echo, coronary angiogram in the a.m., plan of care discussed with the patient. Plan discussed with: Patient My Orders Orders - CATALINA VUONG MD Procedure Category Date Status Time Guaifenesin Plain PHA 03/11/25 In Process Liquid (Robitussin Hossein 14:30 Date of Service: Mar 11, 2025 Billing Provider: CATALINA VUONG MD Common Visit Codes: [id number] INP/OBS CARE(MOD) CATALINA VUONG MD Mar 11, 2025 15:51
--- NOTE | 2025-03-11 23:36 | DVHPN2 ---
Consult Progress Note Date Seen: Mar 11, 2025 Subjective Review of Systems: CVS:Normal, RESPIRATORY:Normal, NEURO:Normal Other Systems: Patient was seen and evaluated in follow up. No overnight events. Patient underwent a transthoracic echocardiogram revealing LVEF of 50% (low normal). He was offered a cardiac catheterization and coronary angiogram with all risks and benefits of the procedure explained in full detail. Telemetry reviewed. Objective vital signs Vital Sign Date Time Temp Pulse Resp B/P (MAP) Pulse Ox O2 Delivery O2 Flow Rate FiO2 03/11/25 09:22 97.0 65 16 144/98 (113) 98 97.0 03/11/25 08:00 Room Air* 0 21 Total Intake and Output 03/10/25 03/10/25 03/11/25 15:00 23:00 07:00 Intake Total 1780 ml 400 ml Balance 1780 ml 400 ml medications Current Medications Medications Dose Ordered Sig/Nadine Route Start Time Stop Time Status Last Admin Dose Admin Sodium Chloride 1,000 ml @ 60 mls/hr [id number] IV 03/09/25 22:00 Acetaminophen/ Hydrocodone Bitart 1 tab Q4HP PRN PO 03/09/25 22:00 03/10/25 22:41 1 TAB Ondansetron HCl 4 mg Q4HP PRN IV 03/09/25 22:00 Docusate Sodium 100 mg BIDPRN PRN PO 03/09/25 22:00 Acetaminophen 650 mg Q6HP PRN PO 03/09/25 22:00 Nitroglycerin 0.4 mg Q5MINP PRN SL 03/09/25 22:00 03/09/25 23:18 0.4 MG Morphine Sulfate 2 mg Q30M PRN IV 03/09/25 22:00 Hydralazine HCl 10 mg Q6HP PRN IV 03/09/25 23:45 Aspirin 81 mg DAILY PO 03/12/25 10:00 Metoprolol Succinate 25 mg DAILY PO 03/12/25 10:00 Lisinopril 5 mg DAILY PO 03/12/25 10:00 Empaglifozin 10 mg DAILY PO 03/12/25 10:00 Examination: GENERAL:Normal, HEENT:Normal, NECK:Normal, LUNGS:Normal, CVS:Abnormal (Sinus rhythm with LBBB), ABDOMEN:Normal, SKIN:Normal, NEURO:Normal laboratory and microbiology Laboratory Tests 03/11/25 04:09 Test 03/11/25 04:09 Range/Units Serum Glucose 86 74-106 mg/dL Problem List/Assessment/Plan Problem List/Assessment/Plan Problem list Stable angina rule out coronary artery disease Left bundle branch block, newly diagnosed Hypertension, newly diagnosed Alcohol dependance History of tobacco use Plan/Recommendation Continued all current supportive medical care. Patient has been seen by Juanita Calderon NP on my behalf, her and I discussed the plan with the patient. The patient with chest pain and a newly diagnosed left bundle branch block underwent a transthoracic echocardiogram revealing LVEF of 50% (low normal). He was offered a cardiac catheterization and coronary angiogram with all risks and benefits of the procedure explained in full detail. The patient requested to explained procedure to over the phone which has been completed. At this point, the patient has not make any informed decisions as if he would like to proceed with the invasive cardiac workup. Please notify Cardiology of any decisions. In the meantime, load on ASA 325 mg and continue maintenance dosage. Initiate lipid lowering agent, lipid panel pending at this time. Initiate blood pressure control with beta-jean pierre, ACEI and add Jardiance given a low normal EF. Continue blood alcohol level, HgbA1C, TSH and Mg levels. Additional plan as per the hospital course. Plan discussed with: Patient Date of Service: Mar 11, 2025 Billing Provider: SHAUN QUIGLEY MD Cardiology Common Codes: [id number] HOSP CARE(High SHAUN QUIGLEY MD Mar 11, 2025 14:11
[2025-03-12] VITALS (13 sets, daily range): BP systolic 114–147; BP diastolic 72–94; PULSE 57–75; RESP 11–20; TEMP 96.7–98.4; O2SAT 94–99
[2025-03-12 07:04] LABS: Hematocrit 43.3 % (41.0-53.0); Hemoglobin 15.4 g/dL (13.5-17.5); Mean Corpuscular Hemoglobin 32.7 pg (28.0-32.0); Mean Corpuscular Volume 92.2 fL (80.0-100.0); Nucleated Red Blood Cells % 0.0 %
[2025-03-12 07:14] LABS: Calcium 8.9 mg/dL (8.7-10.4); Chloride 106 mmol/L (98-107); Potassium 4.3 mmol/L (3.5-5.1); Sodium 143 mmol/L (136-145)
[2025-03-12 07:15] LABS: Anion Gap 10 (5-15); Carbon Dioxide 27 mmol/L (20-31); INR 1.03 (0.9-1.15); Partial Thromboplastin Time 28.6 SEC (24.5-34.5); Prothrombin Time 10.9 sec (9.3-11.8)
[2025-03-12 07:20] LABS: Glucose 100 mg/dL (74-106)
[2025-03-12 07:21] LABS: BUN/Creatinine Ratio 10.3 (10.0-20.0); Blood Urea Nitrogen 9 mg/dL (9-23)
[2025-03-12] MEDS: IODIXANOL 320MG/ML 100ML BTL IV ONE (08:20)
--- NOTE | 2025-03-12 09:24 | DVHPN2 ---
Progress Note Date Seen: Mar 12, 2025 Medical Necessity Reason Pt with a Central, PICC or Fol: No Subjective Patient reports: Feels better Objective vital signs Vital Sign Date Time Temp Pulse Resp B/P (MAP) Pulse Ox O2 Delivery O2 Flow Rate FiO2 03/12/25 05:00 98.2 75 18 132/88 (103) 99 98.2 03/11/25 20:00 Room Air* 0 21 Total Intake and Output 03/11/25 03/11/25 03/12/25 15:00 23:00 07:00 Intake Total 980 ml 600 ml Balance 980 ml 600 ml medications Current Medications Medications Dose Ordered Sig/Nadine Route Start Time Stop Time Status Last Admin Dose Admin Acetaminophen/ Hydrocodone Bitart 1 tab Q4HP PRN PO 03/09/25 22:00 03/10/25 22:41 1 TAB Ondansetron HCl 4 mg Q4HP PRN IV 03/09/25 22:00 Docusate Sodium 100 mg BIDPRN PRN PO 03/09/25 22:00 Acetaminophen 650 mg Q6HP PRN PO 03/09/25 22:00 Nitroglycerin 0.4 mg Q5MINP PRN SL 03/09/25 22:00 03/09/25 23:18 0.4 MG Morphine Sulfate 2 mg Q30M PRN IV 03/09/25 22:00 Hydralazine HCl 10 mg Q6HP PRN IV 03/09/25 23:45 Aspirin 81 mg DAILY PO 03/12/25 10:00 Metoprolol Succinate 25 mg DAILY PO 03/12/25 10:00 Lisinopril 5 mg DAILY PO 03/12/25 10:00 Empaglifozin 10 mg DAILY PO 03/12/25 10:00 Guaifenesin 200 mg Q4HP PRN GT 03/11/25 14:30 03/11/25 15:02 200 MG Examination: GENERAL:Abnormal, HEENT:Abnormal, LUNGS:Abnormal, CVS:Abnormal, ABDOMEN:Normal, ABDOMEN:Abnormal laboratory and microbiology Laboratory Tests 03/12/25 06:38 Test 03/12/25 06:38 Range/Units Serum Glucose 100 74-106 mg/dL Problem List/Assessment/Plan Problem List/Assessment/Plan lbbb borderline LV dysfunction htn hl ACS moderate non critical cad asa statin outpt fu with his cards Plan discussed with: Patient My Orders My Orders Orders - SCOTTIE HOLLIS MD Procedure Category Date Status Time Cl Left Heart Cath CL 03/12/25 Taken 08:09 Cardiac DIET 03/12/25 Transmitted Diet-2gna,Lofat,Lochol Breakfast Date of Service: Mar 12, 2025 Billing Provider: SCOTTIE HOLLIS MD Common Visit Codes: NOT BILLABLE SCOTTIE HOLLIS MD Mar 12, 2025 09:24
--- NOTE | 2025-03-12 09:25 | DVHOP2 ---
Operative Report Operative Report [employer] PROCEDURE REPORT [place], [place] Date of Service: 03/12/25 Cement Rubber: Scottie Hollis MD PROCEDURES PERFORMED: Coronary angiogram, left heart catheterization, conscious sedation administration and supervision, less than 15 minutes; fluoroscopy use and interpretation. PREOPERATIVE DIAGNOSES: LBBB, ACS POSTOP DIAGNOSIS: cad DESCRIPTION OF PROCEDURE: The patient or appropriate family signed informed consent understanding the risks, benefits and alternatives of the procedure, they wished to proceed. The patient was brought to the cardiac collaborating supervising physician in n.p.o. state. The patient was prepped in a sterile fashion. Sedation was used per cardiac cath protocol. I administered 2 mL of 2% lidocaine to the right wrist. With an antegrade front wall puncture. I cannulated the right radial artery and placed a 6-Italian Glidesheath slender. Next, an intra-arterial spasmolytic was administered. Next, a - 6French [place] catheter and JL3.5 and were used for coronary angiogram and LVEDP measurement and pressure pullback. At the completion of procedure, all guides and wires were removed, and there were no immediate complications. FINDINGS: RCA: Moderate vessel off the right sinus of Valsalva, there is no severe flow limiting stenosis. 40% RPL lesion. dominant vessel LEFT MAIN: Moderate size left main, it bifurcates into LAD and circumflex. no stenosis. CIRCUMFLEX: Moderate caliber vessel coming off the left main with no flow limiting stenosis. LAD: LAD is a moderate caliber vessel coming of the left main. mid to distal LAD has a bifurcation lesion 0,1,0 50% . LVEDP of 11 mmhg CONCLUSIONS: 1. moderate non critical cad PLAN: Aggressive risk factor modification and medical management for the patient. SCOTTIE HOLLIS MD Mar 12, 2025 09:25
[2025-03-12] MEDS: fentaNYL CITRATE 100 MCG/2 ML VL ONE (09:30)
[2025-03-12] MEDS: MIDAZOLAM HCL 2MG/2ML 2ml VIAL (1mg/ml) ONE (09:31)
[2025-03-12] MEDS: VERAPAMIL 2.5MG/ML INJ 2ML VIAL IV ONE (09:32)
[2025-03-12] MEDS: LIDOCAINE 2%HCL (LOCAL ANESTH.) INJ 20ML MDV ONE (09:32)
[2025-03-12] MEDS: ANGIOMAX 250 MG VIAL IV ONE (09:32)
[2025-03-12] MEDS: SODIUM CHL 0.9% 0 ML ONE (09:32)
[2025-03-12] MEDS: HEPARIN SODIUM (PORCINE) 5000 UNITS/ML 1ML VIAL ONE (09:32)
[2025-03-12] MEDS: METOPROLOL SUCCINATE XL 50 MG TAB PO SCH (10:58)
[2025-03-12] MEDS: EMPAGLIFLOZIN 10 MG TAB PO SCH (10:58)
[2025-03-12] MEDS: LISINOPRIL 5 MG TAB PO SCH (10:59)
[2025-03-12] MEDS ORDERED: ATOR40TA52 PO (16:36)
[2025-03-12] MEDS ORDERED: EMPA1TAB PO (16:36)
[2025-03-12] MEDS ORDERED: LISI-275 PO (16:36)
[2025-03-12] MEDS ORDERED: ASPI-325 PO (16:36)
[2025-03-12] MEDS ORDERED: METO25TA36 PO (16:36)
--- NOTE | 2025-03-12 16:37 | DVHDS2 ---
Discharge Summary Date of Admission Mar 09, 2025 at 21:56 Date of Discharge: Mar 12, 2025 Labs/Diagnostic Data: Laboratory Results Test 03/12/25 06:38 03/11/25 04:09 03/10/25 04:59 03/09/25 21:15 White Blood Count 3.9 10^3/uL (4.4-10.8) Red Blood Count 4.69 10^6/uL (4.5-5.90) Hemoglobin 15.4 g/dL (13.5-17.5) Hematocrit 43.3 % (41.0-53.0) Mean Corpuscular Volume 92.2 fL (80.0-100.0) Mean Corpuscular Hemoglobin 32.7 pg (28.0-32.0) Mean Corpuscular Hemoglobin Concent 35.5 g/dL (32.0-36.0) Red Cell Distribution Width 13.0 % (11.8-14.3) Platelet Count 322 10^3/uL (140-450) Mean Platelet Volume 8.4 fL (6.9-10.8) Neutrophils (%) (Auto) 60.0 % (37.0-80.0) Lymphocytes (%) (Auto) 27.7 % (10.0-50.0) Monocytes (%) (Auto) 9.2 % (0.0-12.0) Eosinophils (%) (Auto) 2.4 % (0.0-7.0) Basophils (%) (Auto) 0.7 % (0.0-2.0) Neutrophils # (Auto) 2.3 10 ^3/uL (1.6-8.6) Lymphocytes # (Auto) 1.1 10 ^3/uL (0.4-5.4) Monocytes # (Auto) 0.4 10 ^3/uL (0-1.3) Eosinophils # (Auto) 0.1 10 ^3/uL (0-0.8) Basophils # (Auto) 0 10 ^3/uL (0-0.2) Nucleated Red Blood Cells 0.0 % Prothrombin Time 10.9 sec (9.3-11.8) Prothrombin Time INR 1.03 (0.9-1.15) Activated Partial Thromboplast Time 28.6 SEC (24.5-34.5) Sodium Level 143 mmol/L (136-145) Potassium Level 4.3 mmol/L (3.5-5.1) Chloride Level 106 mmol/L (98-107) Carbon Dioxide Level 27 mmol/L (20-31) Anion Gap 10 (5-15) Blood Urea Nitrogen 9 mg/dL (9-23) Creatinine 0.87 mg/dL (0.700-1.30) Glomerular Filtration Rate Calc 113 mL/min (>90) BUN/Creatinine Ratio 10.3 (10.0-20.0) Serum Glucose 100 mg/dL (74-106) Calcium Level 8.9 mg/dL (8.7-10.4) Hemoglobin A1c 5.2 % A1C (<5.7) Magnesium Level 2.3 mg/dL (1.6-2.6) Triglycerides Level 123 mg/dL (< 150) Cholesterol Level 178 mg/dL (< 200) LDL Cholesterol 127 mg/dL (< 100) HDL Cholesterol 38 mg/dL (40-59) Thyroid Stimulating Hormone (TSH) 4.32 uIU/mL (0.55-4.78) Plasma/Serum Blood Alcohol < 3.0 mg/dL (<10) Total Bilirubin 1.2 mg/dL (0.2-1.0) Aspartate Amino Transferase (AST) 27 U/L (13-40) Alanine Aminotransferase (ALT) 36 U/L (7-40) Alkaline Phosphatase 50 U/L (46-116) Total Protein 6.5 g/dL (5.7-8.2) Albumin 4.2 g/dL (3.2-4.8) Troponin I High Sensitivity 35 ng/L (</=54) Test 03/09/25 18:30 B-Type Natriuretic Peptide 38.89 pg/mL (0-100) Other Laboratory Tests 03/12/25 06:38 Brief Hx & Hospital Course: 39-year-old male with a no significant past medical history presented to the hospital with a left-sided chest pressure heaviness found to have stable angina. Patient also has a new onset of left bundle branch block. Patient was seen by Cardiology. Patient underwent left heart catheterization which shows evidence of moderate noncritical coronary artery disease patient was started on aspirin statin Jardiance lisinopril as well as metoprolol succinate. Patient is being discharged under stable condition with a close follow up as an outpatient with the PCP as well as Cardiology. Condition at Discharge: Stable Final Diagnosis/Problems List 9-year-old male with a no significant past medical history presented to the hospital with a left-sided chest pressure heaviness found to have 1. Chest pain with a stable angina 2. New onset of Left bundle branch block 3. Chronic tobacco use disorder -nicotine cessation counseling Discharge Disposition: Home SNF Discharge Will this Physician continue t: No Discharge Instruct/Medications Diet: Cardiac 2g Na,low cholest Activity: No Restrictions, As Tolerated Follow Up/Referral: Follow up with the PCP in 1-2 weeks Follow up with the Cardiology in 1-2 Medications: Medication as prescribed. Scheduled Aspirin (Aspirin Low Dose), 81 MG PO DAILY Atorvastatin Calcium (Atorvastatin Calcium), 1 TAB PO DAILY Empagliflozin (Jardiance), 10 MG PO DAILY Lisinopril (Lisinopril), 5 MG PO DAILY Metoprolol Succinate (Toprol Xl), 1 TAB PO DAILY Discharge Statement: "Patient was advised to return to the ER or call 911 if any headaches, dizziness, shortness of breath, chest pain, abdominal pain, bleeding, fevers, or worsening of medical condition. Patient was counseled about treatment plan, medications, possible side effects, patientverbalized understanding. All questions were answered to the best of my ability. This discharge took greater then 30 minutes in planning, reviewing documentation, counseling the patient, and discussing with other team members." ASSESSMENT ASSESSMENT Assessment 9-year-old male with a no significant past medical history presented to the hospital with a left-sided chest pressure heaviness found to have 1. Chest pain with a stable angina 2. New onset of Left bundle branch block 3. Chronic tobacco use disorder -nicotine cessation counseling Date of Service: Mar 12, 2025 Billing Provider: CATALINA VUONG MD Common Visit Codes: 13183-EAY/OBS DISCH DAY >30min CATALINA VUONG MD Mar 12, 2025 16:37
--- NOTE | 2025-03-12 23:47 | DVHPN2 ---
Progress Note - Dictate Date Seen: Mar 12, 2025 Medical Necessity Reason Pt with a Central, PICC or Fol: No Subjective Patient was seen and evaluated in follow up. Patient underwent coronary angiogram, left heart catheterization which showed moderate non critical CAD. Patient is cardiac stable for discharge. Telemetry reviewed. vital signs Vital Sign Date Time Temp Pulse Resp B/P (MAP) Pulse Ox O2 Delivery O2 Flow Rate FiO2 03/12/25 17:14 97.9 68 15 98 03/12/25 16:53 138/87 (104) 03/12/25 08:05 Room Air* 0 21 Total Intake and Output 03/11/25 03/11/25 03/12/25 15:00 23:00 07:00 Intake Total 980 ml 600 ml Balance 980 ml 600 ml objective GENERAL: Alert and oriented x 3. No acute distress. EYES: PERRL, EOMI. Anicteric. HENT: Moist mucous membranes. LUNGS: Clear to auscultation bilaterally. CARDIOVASCULAR: Regular rate and rhythm. ABDOMEN: Soft, non-tender and non-distended. EXTREMITIES: No edema. NEUROLOGIC: No focal neurological deficits. SKIN: Warm, dry. laboratory and microbiology Laboratory Tests 03/12/25 06:38 Test 03/12/25 06:38 Range/Units Serum Glucose 100 74-106 mg/dL Problem List Stable angina. Left bundle branch block, newly diagnosed. Hypertension, newly diagnosed. Alcohol dependance. History of tobacco use. CAD. Assessment/Plan Continued all current supportive medical care. Lipid lowering agent. Blood pressure control with beta-jean pierre, ACEI and add Jardiance given a low normal EF. Additional plan as per the hospital course. Plan discussed with: Patient SHAUN QUIGLEY MD Mar 12, 2025 23:47
[2025-03-13 11:20] LABS: Hepatitis B Surface Antigen Negative (Negative)
[2025-03-13 11:47] LABS: Hepatitis C Antibody Negative (Negative)
--- NOTE | 2025-03-22 07:46 | ECG ---
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
== END 2025-03-12 18:04 | disposition home or self-care (01) | DRG 191 ==
LOC: ER 18:10 → OVERFLOW 21:56 → TELE-WESTW 23:58
PROVIDERS: ADMIT Internal Medicine; ATTEND Internal Medicine
PROC: 4A023N7 Measurement of Cardiac Sampling and Pressure, Left Heart, Percutaneous Approach (ICD-10-PCS; principal; 2025-03-12)
PROC: B211YZZ Fluoroscopy of Multiple Coronary Arteries using Other Contrast (ICD-10-PCS; 2025-03-12)
DX: I25.118 Atherosclerotic heart disease of native coronary artery with other forms of angina pectoris (principal); I24.9 Acute ischemic heart disease, unspecified; I44.7 Left bundle-branch block, unspecified; E87.6 Hypokalemia; I10 Essential (primary) hypertension; F17.200 Nicotine dependence, unspecified, uncomplicated; Z83.3 Family history of diabetes mellitus; Z71.6 Tobacco abuse counseling
CPT/HCPCS: 36415; 71045; 80048; 80053; 80061; 80320; 83036; 83735; 83880; 84443; 84484; 85025; 85610; 85730; 86803; 87340; 93005; 93306; 93458; 96365; 99152; G0378; J2250; J3480; Q9967